=== PATIENT | male | born 1945 | race Caucasian/White ===

== ENCOUNTER → 2018-06-09 | Outpatient (CLI) | payer BC, MEDICARE ==
[~2018-06-09] MED LIST: ASPI-983 PO; ATOR40TA70 PO; LISI-552 PO; METO-351 PO
== END ==
LOC: CARD 12:39
PROVIDERS: ATTEND Internal Medicine Cardiovascular Disease
DX: I08.3 Combined rheumatic disorders of mitral, aortic and tricuspid valves (principal); J44.9 Chronic obstructive pulmonary disease, unspecified; I10 Essential (primary) hypertension; E78.2 Mixed hyperlipidemia
CPT/HCPCS: 93306

== ENCOUNTER → 2018-06-15 | Outpatient (CLI) | payer BC, MEDICARE ==
[~2018-06-15] VITALS: Ht 167.6 cm; Wt 86.2 kg
[~2018-06-15] MED LIST changes: +CATHETER FLUSH 10 ML SYR IV PRN
[2018-06-15 09:22] VITALS: BP 144/83
[2018-06-15 09:28] VITALS: BP 169/67
[2018-06-15 09:31] VITALS: BP 180/105
--- NOTE | 2018-06-15 13:21 | STRESS TEST ---
DATE OF SERVICE: EXERCISE MYOVIEW STRESS TEST REPORT REFERRING PHYSICIAN: . Baseline heart rate is 61, baseline blood pressure 147/86. Baseline EKG, sinus rhythm with no ischemic changes. In summary, the patient was injected with 10.32 mCi of technetium-99 Myoview and the resting images were obtained. Then, the patient was able to exercise for 3 minutes on standard Christofer protocol, was unable to exercise any further. Achieved maximum heart rate of 124, which is 82% of maximum expected heart rate. With peak exercise level, blood pressure was 180/105. EKG was showing [address] depression in II and aVF, V4 and V5, returned to baseline during recovery. The resting and stress images were reviewed and compared in the short axis, horizontal long axis, and vertical long axis views. Review of the images showed diaphragmatic attenuation with reversible ischemia involving the whole inferior wall, inferolateral wall, and inferior apex. SSS is 12. SDS 6. TID value 1.02. On the gated images, the left ventricle appeared to be prominent with end diastolic volume 116 mL, mild diffuse left ventricular hypokinesia with calculated ejection fraction of 40%. CONCLUSION: 1. Poor exercise tolerance, a total of 3 minutes on standard Christofer protocol, total of 4.6 METS achieving 82% of maximum expected heart rate. 2. Nondiagnostic EKG changes with exercise returned to baseline during recovery. 3. Diaphragmatic attenuation with reversible ischemia involving the whole inferior wall, inferolateral wall, inferior apex and anterolateral wall. 4. Slightly prominent left ventricle with mild diffuse left ventricular hypokinesia with calculated ejection fraction of 40%. Job ID: [id number] DocumentID: [id number] Dictated Date: 06/15/2018 12:07:43 Alternative Medicine Practitioner Date: 06/15/2018 13:20:40 Dictated By: LIA BEAUCHAMP MD
== END ==
LOC: CARD 07:13
PROVIDERS: ATTEND Internal Medicine Cardiovascular Disease
DX: I11.9 Hypertensive heart disease without heart failure (principal); E78.2 Mixed hyperlipidemia; I35.0 Nonrheumatic aortic (valve) stenosis
CPT/HCPCS: 78452; 93017

== ENCOUNTER 2018-06-17 11:46 | Day surgery (SDC) | payer BC, MEDICARE ==
[~2018-06-17] VITALS: Ht 167.6 cm; Wt 86.2 kg
[2018-06-17] VITALS (10 sets, daily range): BP systolic 152–184; BP diastolic 75–115
[2018-06-17] MEDS ORDERED: HEParin (CATH LAB) 2,000 ML IV ONE (11:47)
[2018-06-17] MEDS ORDERED: LIDOCAINE 1% INJ 20 ML 20 ML VIAL ONE (11:47)
[2018-06-17] MEDS ORDERED: NS IV 1000 ML 1,000 ML IV SCH ×2 (12:00→13:45)
[2018-06-17] MEDS ORDERED: LISI-552 PO (12:13)
[2018-06-17] MEDS ORDERED: ASPI-983 PO (12:13)
[2018-06-17] MEDS ORDERED: ATOR40TA70 PO (12:13)
[2018-06-17 12:18] LABS: HEMOGLOBIN 15.1 G/DL (13.3-17.7); MEAN PLATELET VOLUME 8.8 FL (7.4-10.4); RED BLOOD COUNT 4.7 10^6/uL (4.35-5.85); RED CELL DISTRIBUTION WIDTH 13.3 % (10.0-14.5); WHITE BLOOD COUNT 5.4 10^3/uL (4.3-11.0)
[2018-06-17 12:37] LABS: ALANINE AMINOTRANSFERASE 16 U/L (0-55); ALBUMIN 4.4 GM/DL (3.2-4.5); ALKALINE PHOSPHATASE 108 U/L (40-136); BILIRUBIN,TOTAL 0.7 MG/DL (0.1-1.0); BUN/CREATININE RATIO 11; CALCIUM 9.7 MG/DL (8.5-10.1); CARBON DIOXIDE 27 MMOL/L (21-32); CHLORIDE 103 MMOL/L (98-107); CHOLESTEROL 191 MG/DL (< 200); CREATININE SERUM 1.12 MG/DL (0.60-1.30); GFR ESTIMATED > 60; GLUCOSE 95 MG/DL (70-105); HDL CHOLESTEROL 41 MG/DL (40-60); POTASSIUM 3.8 MMOL/L (3.6-5.0); SODIUM 138 MMOL/L (135-145); TOTAL PROTEIN 8.2 GM/DL (6.4-8.2); TRIGLYCERIDES 165 MG/DL (<150); VLDL CHOLESTEROL 33 MG/DL (5-40)
[2018-06-17] MEDS ORDERED: FLU QUADRIvalent (5+ YOA) 2018-2019 (AFLURIA) 0.5 ML IM ONE (12:45)
[2018-06-17] MEDS ORDERED: MIDAZOLAM 5 MG/5 ML (VERSED) VIAL ONE (12:54)
[2018-06-17] MEDS ORDERED: fentaNYL INJECTION 100 MCG/2 ML AMP ONE (12:54)
--- NOTE | 2018-06-17 13:04 | Diagnostic Imaging Report ---
INDICATION: Pre-heart catheterization. Patient had abnormal stress test and dyspnea. TIME OF EXAM: 12:08 PM Correlation is made with prior study from 05/31/2010. FINDINGS: The heart size is normal. The lungs are clear. No pleural effusion or pneumothorax is identified. The pulmonary vascularity is normal. IMPRESSION: No acute abnormality detected. Dictated by: Dictated on workstation # [id number]
--- NOTE | 2018-06-17 13:06 | Cardiac Procedure Note-CS/ASA ---
Pre-Procedure Note Pre-Op Procedure Note H&P Reviewed The H&P was reviewed, patient examined and no changes noted. Date H&P Reviewed: Jun 17, 2018 Time H&P Reviewed: 13:05 Conscious Sedation Pre-Proced Time Reviewed: 13:05 ASA Class: 3 Airway Mallampati Classification: ([place] appropriate class) I. II. III, IV Lungs Heart ASA score ASA 1: a normal healthy patient ASA 2: a patient with a mild systemic disease (mid diabetes, controlled hypertension, obesity x ASA 3: a patient with a severe systemic disease that limits activity (angina , COPD, prior Myocardial infarction) ASA 4: a patient with an incapacitating disease that is a constant threat to life (CHF, renal failure) ASA 5: a moribund patient not expected to survive 24 hrs. (ruptured aneurysm) ASA 6: a declared brain patient whose organs are being harvested. For emergent operations, add the letter E after the classification Grade 3 Sedation Plan: Analgesia, Amnesia, Plan communicated to team members, Discussed options with patient/fam, Discussed risks with patient/fam Note The patient is an appropriate candidate to undergo the planned procedure, sedation, and anesthesia. The patient immediately re-assessed prior to indication. LIA BEAUCHAMP MD Jun 17, 2018 13:06
[2018-06-17] MEDS ORDERED: PATIENT MAY USE OWN MEDS, ALL PO SCH (13:45)
[2018-06-17] MEDS ORDERED: meTOprolol 5 MG/5 ML (LOPRESSOR) VIAL ONE (13:48)
--- NOTE | 2018-06-17 13:48 | Discharge Inst-Post CATH ---
Discharge Inst-CATH Post Cardiac Cath D/C Inst Follow Up/Plan Appointment with Dr. Surya Acosta next week Appointment with Dr. De La Garza's office in 2-4 weeks CARDIAC CATH DISCHARGE INSTRUCTIONS *Hold Metformin for 48 hours post heart cath. ACTIVITY * Go Home directly and rest. * Limit activity of the leg (or wrist if it was used) for 7 days including aerobics, swimming, jogging, bicycling, etc. * Restrict stair-climbing for 7 days if possible, if not, climb up with your non -cath leg, then bring together on the same step. * Avoid lifting, pushing, pulling or excessive movement of the affected extremity for 7 days. * Customary sexual activity may be resumed after 2 days-use caution not to use a position that strains or causes pain to the affected extremity. * No driving for 24 hours. * NO SMOKING. * Avoid straining for bowel movements for 7 days. * Gentle walking on level ground is allowed. * Returning to work will depend on the type of procedure and the results. Your doctor will discuss this with you. CALL YOUR DOCTOR FOR ANY OF THE FOLLOWING: *If bleeding from the puncture site occurs- Apply gentle pressure to site with clean cloth and call your doctor or EMS. * If a knot or lump forms under the skin, increases in size, or causes pain. * If bruising appears to be worsening or moving further down your leg instead of disappearing. * Temperature above 101 F. CARE OF YOUR GROIN INCISION; * Bruising or purple discoloration of the skin near the puncture site is common. * You may shower only, no bathtub bathing for 5 days. Be careful to avoid slipping as your leg may feel stiff. * If a closure device was used on your femoral artery, please see the attached guide regarding care of the device and your leg. * REMOVE the dressing from your groin the next day after your procedure in the shower. CARE OF YOUR WRIST INCISION; * Bruising or purple discoloration of the skin near the puncture site is common. * You may shower. * DO NOT submerge wrist. * Remove dressing in 24 hours. LIA DE LA GARZA MD Jun 17, 2018 1:48 pm
--- NOTE | 2018-06-17 13:52 | Cardiac Cath Report ---
Cardiac Cath Report Physician (s)/Sales Demonstrator (s) Physician LIA BEAUCHAMP MD Pre-Procedure Diagnosis Pre-Procedure Diagnosis: Coronary artery disease Post-Procedure Note Procedure Start Date: Jun 17, 2018 Name of Procedure: Left heart catheterization Left ventriculogram Aortic arch angiogram Findings/Procedure Note PROCEDURE NOTE: After explaining the procedure to the patient, all pros and cons were explained , all questions were answered. The patient signed the consent and then he was placed on the cardiac catheterization laboratory. Groin was prepped SL fashion local anesthesia was used. Sheath placed in the right femoral artery. Kerrie right and left catheter were used to access the coronary system. Pigtail was used to access the left ventricular cavity. Left ventriculogram was done Aortic arch angiogram was done to evaluate calcification in the aortic arch and plan for bypass surgery At the end of the procedure the sheath was removed. Closure device was used FINDINGS: Hemodynamics LV 174/23, end-diastolic pressure of 23 Aorta 168/79 mean of 117 ANATOMY: Left Main is calcified with 50-60 percent stenosis at the ostial/proximal portion of the left main Left Anterior Descending has mild to moderate disease at the proximal and midportion nonobstructive disease Left Circumflex has severe proximal disease, second obtuse marginal branch has severe ostial stenosis Right Coronory Artery is totally occluded proximally getting filled by collaterals from the left, dominant artery LV Gram was done showing normal left ventricular size with normal contractility estimated ejection fraction 60 percent Aorta evaluation done with aortic arch angiogram which showed mild calcification and tortuous great neck vessels, no dissection or aneurysm, no obstructive disease in the great vessels CONCLUSION: 1. 50-60 percent ostial left main coronary artery stenosis 2. Severe proximal circumflex artery stenosis, severe second obtuse marginal artery stenosis 3. Total occlusion of the dominant right coronary artery getting filled by collaterals from the left 4. Mild to moderate disease in the proximal and mid LAD 5. Normal left ventricular size and systolic function estimated ejection fraction 60 percent 6. Hypertensive changes in the aortic arch, no dissection or aneurysm, slightly tortuous great vessels of the neck with no obstructive disease DISCUSSION AND RECOMMENDATION: Continue to maximize medical therapy, arrange for evaluation for CABG as an outpatient Anesthesia Type: Conscious Sedation Estimated blood loss (mL): 20 ml Contrast Amount: 80 ml Total Radiation Dose: 580 mGy Post-Procedure Diagnosis Post-operative diagnosis: Shortness of breath Coronary artery disease Hypertension Hyperlipidemia LIA BEAUCHAMP MD Jun 17, 2018 1:52 pm
[2018-06-17] MEDS ORDERED: METO-351 PO (13:53)
== END 2018-06-17 18:15 | disposition home or self-care (01) ==
LOC: CATH 11:46 → SDC 14:07 → CATH 18:15
PROVIDERS: ATTEND Internal Medicine Cardiovascular Disease
DX: R06.02 Shortness of breath (principal); I25.10 Atherosclerotic heart disease of native coronary artery without angina pectoris; I10 Essential (primary) hypertension; E78.2 Mixed hyperlipidemia; R07.89 Other chest pain; J44.9 Chronic obstructive pulmonary disease, unspecified; Z79.899 Other long term (current) drug therapy; I08.3 Combined rheumatic disorders of mitral, aortic and tricuspid valves; R06.83 Snoring; Z11.2 Encounter for screening for other bacterial diseases
CPT/HCPCS: 36221; 36415; 71045; 80053; 80061; 85027; 85610; 85730; 87081; 93458

== ENCOUNTER 2018-09-16 10:34 | Outpatient (RCR) | payer BC, MEDICARE ==
[~2018-09-16 10:34] MED LIST changes: -CATHETER FLUSH 10 ML SYR IV PRN
== END 2018-11-24 | disposition home or self-care (01) ==
LOC: CR 10:34
PROVIDERS: ATTEND Thoracic Surgery (Cardiothoracic Vascular Surgery)
DX: Z48.812 Encounter for surgical aftercare following surgery on the circulatory system (principal); Z95.1 Presence of aortocoronary bypass graft
CPT/HCPCS: 93798

== ENCOUNTER → 2019-01-04 | Outpatient (CLI) | payer BC, MEDICARE ==
--- NOTE | 2019-01-04 12:12 | Diagnostic Imaging Report ---
Left foot. INDICATION: Pain. 3 views were obtained. There are no prior studies available for comparison. FINDINGS: There is no fracture, dislocation or acute bony abnormality evident. The Lisfranc joint is well maintained. There is at least moderate degenerative disease of the DIP and PIP joints and of the first tarsometatarsal joint. There is also small calcaneal spur. The soft tissues are unremarkable. IMPRESSION: There is no evidence for an acute bony abnormality. Dictated by: Dictated on workstation # [id number]
== END ==
LOC: RAD 11:09
PROVIDERS: ATTEND Family Medicine
DX: M79.672 Pain in left foot (principal)
CPT/HCPCS: 73630

== ENCOUNTER → 2019-01-08 | Outpatient (CLI) | payer BC, MEDICARE | LOC: CARD 12:47 | PROVIDERS: ATTEND Internal Medicine Cardiovascular Disease | DX: I25.10 Atherosclerotic heart disease of native coronary artery without angina pectoris (principal); I10 Essential (primary) hypertension; E78.2 Mixed hyperlipidemia; I08.3 Combined rheumatic disorders of mitral, aortic and tricuspid valves | CPT/HCPCS: 93306 ==

== ENCOUNTER → 2019-01-11 | Outpatient (CLI) | payer BC, MEDICARE ==
[~2019-01-11] VITALS: Ht 167.6 cm; Wt 85.3 kg
[~2019-01-11] MED LIST changes: +CATHETER FLUSH 10 ML SYR IV PRN
[2019-01-11 09:50] VITALS: BP 129/71
--- NOTE | 2019-01-12 00:46 | STRESS TEST ---
DATE OF SERVICE: 01/11/2019 REFERRING PHYSICIAN: Dr. Ramin Doe. INDICATION: Valvular heart disease. Baseline heart rate is 80, baseline blood pressure 139/71. Baseline EKG is sinus rhythm with no ischemic changes. In summary, the patient was injected with 10.13 mCi of technetium-99 Myoview and the resting images were obtained. Then, the patient started exercising with a baseline heart rate, blood pressure and EKG mentioned above. The patient was able to exercise for a total of 4 minutes and 22 seconds on standard Christofer protocol. With peak exercise level, EKG was showing nondiagnostic changes. Peak heart rate was 128, which is 85% of maximum expected heart rate. During recovery, heart rate and blood pressure returned to baseline. EKG returned to baseline. The resting and stress images were reviewed and compared in the short axis, horizontal long axis, and vertical long axis views. Review of the images showed diaphragmatic attenuation with typical male pattern. No significant ischemia or infarction was seen. SSS is 3, SDS 3, TID value 0.97. On the gated images, the left ventricle appeared to be normal size with normal contractility. Calculated ejection fraction 47%. CONCLUSION: 1. Fair exercise tolerance, a total of 4 minutes 22 seconds on standard Christofer protocol, total of 4 METS achieving 85% of maximum expected heart rate. 2. Appropriate heart rate and blood pressure response to exercise returned to baseline during recovery. 3. Nondiagnostic EKG changes with exercise returned to baseline during recovery. 4. Diaphragmatic attenuation with typical male pattern with no significant ischemia or infarction on SPECT images. 5. Normal left ventricular size with normal contractility. Calculated ejection fraction 47%. Job ID: [id number] DocumentID: [id number] Dictated Date: 01/11/2019 16:55:58 [employer] Marker Axle Date: 01/12/2019 00:45:22 Dictated By: LIA BEAUCHAMP MD
== END ==
LOC: CARD 07:42
PROVIDERS: ATTEND Internal Medicine Cardiovascular Disease
DX: I08.2 Rheumatic disorders of both aortic and tricuspid valves (principal); I25.10 Atherosclerotic heart disease of native coronary artery without angina pectoris; I10 Essential (primary) hypertension; E78.2 Mixed hyperlipidemia
CPT/HCPCS: 78452; 93017

== ENCOUNTER → 2019-09-15 | Outpatient (CLI) | payer BC, MEDICARE ==
[~2019-09-15] MED LIST changes: -CATHETER FLUSH 10 ML SYR IV PRN
--- NOTE | 2019-09-15 10:53 | Diagnostic Imaging Report ---
EXAMINATION: CT Abdomen Pelvis without contrast. TECHNIQUE: Multiple contiguous axial images were obtained through the abdomen and pelvis without the use of intravenous contrast. All CT scans use one or more of the following dose optimizing techniques: automated exposure control, MA and/or KvP adjustment based on a patient size and exam type, or iterative reconstruction. HISTORY: MICROHEMATURIA COMPARISON: None available. FINDINGS: Limited views of the lower thorax are unremarkable. The liver is normal without focal lesion. There is no biliary ductal dilation. Pancreas is normal. Spleen is normal. Adrenal glands are normal. Multiple small stones are seen in the gallbladder. No evidence for cholecystitis. No renal or ureteral calculi are seen. No suspicious renal lesions. There is no hydronephrosis. Urinary bladder is normal. There are no dilated loops of large or small bowel. No obstruction or inflammation. No free fluid or air. No abdominal or pelvic lymphadenopathy. Aorta is normal in caliber without aneurysm. There are no suspicious osseous lesions. IMPRESSION: 1. No renal or ureteral calculi. 2. Cholelithiasis without cholecystitis. Dictated by: Dictated on workstation # [id number]
--- NOTE | 2019-09-15 10:55 | Diagnostic Imaging Report ---
PROCEDURE: US Scrotum. TECHNIQUE: Multiple real-time grayscale images were obtained over the scrotum in various projections bilaterally. INDICATION: Left testicular lump. FINDINGS: Right testicle measures 3.5 x 1.8 x 2.5 cm and the left testicle measures 3.5 x 1.9 x 2.4 cm. Both testes show homogeneous echotexture. No discrete testicular mass is identified. There is blood flow to both testes. Epididymides are unremarkable bilaterally. There are small hydroceles bilaterally. No varicocele is detected. IMPRESSION: 1. No evidence of testicular mass or vascular compromise. 2. Small bilateral hydroceles. Dictated by: Dictated on workstation # [id number]
== END ==
LOC: RAD 09:53
PROVIDERS: ATTEND Urology
DX: K80.20 Calculus of gallbladder without cholecystitis without obstruction (principal); N43.3 Hydrocele, unspecified; N50.89 Other specified disorders of the male genital organs; R31.29 Other microscopic hematuria
CPT/HCPCS: 74176; 76870

== ENCOUNTER → 2019-11-24 | Outpatient (CLI) | payer BC, MEDICARE | LOC: CARD 12:42 | PROVIDERS: ATTEND Physician Assistant | DX: I25.10 Atherosclerotic heart disease of native coronary artery without angina pectoris (principal); I34.0 Nonrheumatic mitral (valve) insufficiency; E78.2 Mixed hyperlipidemia; I51.7 Cardiomegaly; I35.8 Other nonrheumatic aortic valve disorders | CPT/HCPCS: 93306 ==

== ENCOUNTER 2019-12-08 06:35 | Day surgery (SDC) | payer BC, MEDICARE ==
[~2019-12-08] VITALS: Ht 167 cm; Wt 85.0 kg
[2019-12-08] VITALS (10 sets, daily range): BP systolic 117–170; BP diastolic 65–87
[2019-12-08] MEDS ORDERED: LIDOCAINE 1% INJ 20 ML 20 ML VIAL ONE (06:41)
[2019-12-08] MEDS ORDERED: NS IV 1000 ML 1,000 ML ONE (06:41)
[2019-12-08] MEDS ORDERED: HEParin (CATH LAB) 2,000 ML IV ONE (06:41)
[2019-12-08] MEDS ORDERED: NS IV 1000 ML 1,000 ML IV SCH ×3 (06:43→09:21)
[2019-12-08 07:08] LABS: BILIRUBIN,URINE NEGATIVE (NEGATIVE); CLARITY,URINE CLEAR; COLOR,URINE YELLOW; GLUCOSE, URINE (UA) NEGATIVE (NEGATIVE); KETONES,URINE NEGATIVE (NEGATIVE); LEUKOCYTE ESTERASE ,URINE NEGATIVE (NEGATIVE); NITRITE,URINE NEGATIVE (NEGATIVE); PH,URINE 6.5 (5-9); PROTEIN,URINE 1+ (NEGATIVE)
[2019-12-08 07:10] LABS: HEMOGLOBIN 14.1 G/DL (13.3-17.7); MEAN PLATELET VOLUME 8.6 FL (7.4-10.4); RED CELL DISTRIBUTION WIDTH 13.8 % (10.0-14.5); WHITE BLOOD COUNT 8.7 10^3/uL (4.3-11.0)
[2019-12-08] MEDS ORDERED: ROSU40TA23 PO (07:11)
[2019-12-08 07:19] LABS: BACTERIA,URINE NEGATIVE /HPF; RBC,URINE 25-50 /HPF; SQUAMOUS EPITHELIAL CELL,UR 0-2 /HPF
[2019-12-08 07:27] LABS: INR 0.9 (0.8-1.4); PROTHROMBIN TIME PATIENT 12.9 SEC (12.2-14.7)
[2019-12-08 07:34] LABS: ALBUMIN 4.3 GM/DL (3.2-4.5); BILIRUBIN,TOTAL 0.5 MG/DL (0.1-1.0); CALCIUM 9.7 MG/DL (8.5-10.1); CREATININE SERUM 1.49 MG/DL (0.60-1.30); POTASSIUM 3.7 MMOL/L (3.6-5.0); TOTAL PROTEIN 7.7 GM/DL (6.4-8.2)
--- NOTE | 2019-12-08 07:47 | Diagnostic Imaging Report ---
EXAM: CHEST 1 VIEW, AP/PA ONLY INDICATION: Coronary artery disease. COMPARISON: 06/17/2018. FINDINGS: Normal heart size. Sternotomy. Normal central pulmonary vascularity. No focal pulmonary opacity, pleural effusion or pneumothorax. IMPRESSION: Interval sternotomy. No acute cardiopulmonary findings. Dictated by: Dictated on workstation # [id number]
[2019-12-08] MEDS ORDERED: MIDAZOLAM 5 MG/5 ML (VERSED) VIAL ONE (08:07)
[2019-12-08] MEDS ORDERED: fentaNYL INJECTION 100 MCG/2 ML AMP ONE (08:08)
--- NOTE | 2019-12-08 09:17 | Cardiac Procedure Note-CS/ASA ---
Pre-Procedure Note Pre-Op Procedure Note H&P Reviewed The H&P was reviewed, patient examined and no changes noted. Date H&P Reviewed: Dec 08, 2019 Time H&P Reviewed: 08:30 Conscious Sedation Pre-Proced Time 08:30 ASA Score 3 For ASA 3 and 4: Consider anesthesia and medical clearance. Also, for patients with a history of failed moderate sedation consider anesthesia. Airway Lungs Heart ASA score ASA 1: a normal healthy patient ASA 2: a patient with a mild systemic disease (mid diabetes, controlled hypertension, obesity x ASA 3: a patient with a severe systemic disease that limits activity (angina, COPD, prior Myocardial infarction) ASA 4: a patient with an incapacitating disease that is a constant threat to life (CHF, renal failure) ASA 5: a moribund patient not expected to survive 24 hrs. (ruptured aneurysm) ASA 6: a declared brain- patient whose organs are being harvested. For emergent operations, add the letter E after the classification Mallampati Classification Grade 3 Sedation Plan Analgesia, Amnesia, Plan communicated to team members, Discussed options with patient/fam, Discussed risks with patient/fam The patient is an appropriate candidate to undergo the planned procedure, sedation, and anesthesia. The patient immediately re-assessed prior to indication. LIA BEAUCHAMP MD Dec 08, 2019 09:17
--- NOTE | 2019-12-08 09:21 | Cardiac Cath Report ---
Cardiac Cath Report Physician (s)/Roll Forming Supervisor (s) Physician LIA BEAUCHAMP MD Pre-Procedure Diagnosis Pre-Procedure Diagnosis: Coronary artery disease Post-Procedure Note Procedure Start Date: Dec 08, 2019 Name of Procedure: Left heart catheter Vein graft angiogram JOY angiogram Findings/Procedure Note PROCEDURE NOTE: 74 years old gentleman with history of coronary artery disease, CABG, had significant deterioration liver ventricular function, scheduled for cardiac catheterization possible PTCA After explaining the procedure to the patient, all pros and cons were explained, all questions were answered. The patient signed the consent and then he was placed on the cardiac catheterization laboratory. Groin was prepped SL fashion local anesthesia was used. Sheath placed in the right femoral artery. Kerrie right and left catheter were used to access the coronary system.Vein Graft evaluated. JOY evaluated. Pigtail was used to access the left ventricular cavity. Left ventriculogram was not done, pressure was measured Aortic arch angiogram was not done At the end of the procedure the sheath was removed. Closure device was used FINDINGS: Hemodynamics LV 141/19, end-diastolic pressure of 19 Aorta 141/64 mean of 90 ANATOMY: Left Main has moderate disease Left Anterior Descending has severe disease proximally, JOY to LAD is patent Left Circumflex is occluded proximally, vein graft to OM1/OM 2 is patent with good flow Right Coronory Artery is totally occluded, small artery, not bypassed JOY to LAD is patent with good flow in the LAD Vein Graft /jump graft to OM1 and OM 2 is patent with excellent flow distally LV Gram was not done, pressure was measured CONCLUSION: 1. Occluded right coronary artery that is not bypassed, very small artery not amendable to intervention 2. Occluded proximal circumflex artery with patent vein graft to OM1/OM 2 3. Patent JOY to LAD 4. Moderately elevated left ventricular end-diastolic pressure DISCUSSION AND RECOMMENDATION: Maximizing medical therapy, no intervention is needed Anesthesia Type: Conscious Sedation Estimated blood loss (mL): 25 ml Contrast Amount: 31 ml Total Radiation Dose: 340 mGy Post-Procedure Diagnosis Post-operative diagnosis: Coronary artery disease Congestive heart failure, chronic compensated left ventricular systolic dysfunction, ischemic cardiomyopathy Hypertension Hyperlipidemia LIA BEAUCHAMP MD Dec 08, 2019 09:21
[2019-12-08] MEDS ORDERED: EZET10TA17 PO (09:24)
--- NOTE | 2019-12-08 09:24 | Discharge Inst-Post CATH ---
Discharge Inst-CATH/EP Problems Reviewed?: Yes Post Cardiac Cath/EP D/C Inst Follow Up/Plan Appointment with Dr. De La Garza's office in 4 weeks <b>CARDIAC CATH/EP PROCEDURE DISCHARGE INSTRUCTIONS</b> ACTIVITY * Go Home directly and rest. * Limit activity of the leg (or wrist if it was used) for 7 days including aerobics, swimming, jogging, bicycling, etc. * Restrict stair-climbing for 7 days if possible, if not, climb up with your non-cath leg, then bring together on the same step. * Avoid lifting, pushing, pulling or excessive movement of the affected extremity for 7 days. * Customary sexual activity may be resumed after 2 days-use caution not to use a position that strains or causes pain to the affected extremity. * No driving for 24 hours. * NO SMOKING. * Avoid straining for bowel movements for 7 days. * Gentle walking on level ground is allowed. * Returning to work will depend on the type of procedure and the results. Your doctor will discuss this with you. CALL YOUR DOCTOR FOR ANY OF THE FOLLOWING: *If bleeding from the puncture site occurs- Apply gentle pressure to site with clean cloth and call your doctor or EMS. * If a knot or lump forms under the skin, increases in size, or causes pain. * If bruising appears to be worsening or moving further down your leg instead of disappearing. * Temperature above 101 F. CARE OF YOUR GROIN INCISION; * Bruising or purple discoloration of the skin near the puncture site is common. * You may shower only, no bathtub bathing for 5 days. Be careful to avoid slipping as your leg may feel stiff. * If a closure device was used on your femoral artery, please see the attached guide regarding care of the device and your leg. * Leave dressing on FOR 24 hours. CARE OF YOUR WRIST INCISION; * Bruising or purple discoloration of the skin near the puncture site is common. * You may shower. * DO NOT submerge wrist. * Leave dressing on FOR 24 hours. LIA DE LA GARZA MD Dec 08, 2019 09:24
[2019-12-08] MEDS ORDERED: PATIENT MAY USE OWN MEDS, ALL PO SCH (09:30)
--- OUTSIDE RECORDS SUMMARY | 2019-12-10 02:10 | XMS REPORT | Continuity of Care Document ---
Author Organization Unknown Address Unknown Phone Unavailable Allergies Active Description Code Type Severity Reaction Onset Reported/Identified Relationship to Patient Clinical Status Yes No Known Drug Allergies [id number] Drug Allergy Unknown N/A 06/15/2018 Medications There is no data. Problems Date Dx Coded Attending Type Code Diagnosis Diagnosed By 06/10/2018 LIA BEAUCHAMP MD Ot E78. 2 MIXED HYPERLIPIDEMIA 06/10/2018 LIA BEAUCHAMP MD Ot I08. 3 COMB RHEUMATIC DISORD OF MITRAL, AORTIC 06/10/2018 LIA BEAUCHAMP MD Ot I10 ESSENTIAL (PRIMARY) HYPERTENSION 06/10/2018 LIA BEAUCHAMP MD Ot J44. 9 CHRONIC OBSTRUCTIVE PULMONARY DISEASE, U 06/15/2018 LIA BEAUCHAMP MD Ot E78. 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 9 CHRONIC OBSTRUCTIVE PULMONARY DISEASE, U 06/17/2018 LIA BEAUCHAMP MD Ot E78. 2 MIXED HYPERLIPIDEMIA 06/17/2018 LIA BEAUCHAMP MD Ot I11. 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 0 NONRHEUMATIC AORTIC (VALVE) STENOSIS 06/17/2018 LIA BEAUCHAMP MD Ot E78. 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 10 ATHSCL HEART DISEASE OF [place] CORONARY 06/17/2018 LIA BEAUCHAMP MD Ot J44. 9 CHRONIC OBSTRUCTIVE PULMONARY DISEASE, U 06/17/2018 LIA BEAUCHAMP MD Ot R06. 02 SHORTNESS OF BREATH 06/17/2018 LIA BEAUCHAMP MD Ot R06. 83 SNORING 06/17/2018 LIA BEAUCHAMP MD Ot R07. 89 OTHER CHEST PAIN 06/17/2018 LIA BEAUCHAMP MD Ot Z11. 2 ENCOUNTER FOR SCREENING FOR OTHER BACTER 06/17/2018 LIA BEAUCHAMP MD Ot Z79.899 OTHER IRONWORKER (CURRENT) DRUG THERAPY 06/19/2018 LIA BEAUCHAMP MD Ot E78. 2 MIXED HYPERLIPIDEMIA 06/19/2018 LIA BEAUCHAMP MD Ot I08. 3 COMB RHEUMATIC DISORD OF MITRAL, AORTIC 06/19/2018 LIA BEAUCHAMP MD J Ot I10 ESSENTIAL (PRIMARY) HYPERTENSION 06/19/2018 LIA BEAUCHAMP MD Ot I25. 10 ATHSCL HEART DISEASE OF [place] CORONARY 06/19/2018 LIA BEAUCHAMP MD Ot J44. 9 CHRONIC OBSTRUCTIVE PULMONARY DISEASE, U 06/19/2018 LIA BEAUCHAMP MD Ot R06. 02 SHORTNESS OF BREATH 06/19/2018 LIA BEAUCHAMP MD Ot R06. 83 SNORING 06/19/2018 LIA BEAUCHAMP MD Ot R07. 89 OTHER CHEST PAIN 06/19/2018 LIA BEAUCHAMP MD Ot Z11. 2 ENCOUNTER FOR SCREENING FOR OTHER BACTER 06/19/2018 LIA BEAUCHAMP MD Ot Z79.899 OTHER IRONWORKER (CURRENT) DRUG THERAPY 06/23/2018 LIA BEAUCHAMP MD Ot E78. 2 MIXED HYPERLIPIDEMIA 06/23/2018 LIA BEAUCHAMP MD Ot I08. 3 COMB RHEUMATIC DISORD OF MITRAL, AORTIC 06/23/2018 LIA BEAUCHAMP MD Ot I10 ESSENTIAL (PRIMARY) HYPERTENSION 06/23/2018 LIA BEAUCHAMP MD Ot I25. 10 ATHSCL HEART DISEASE OF [place] CORONARY 06/23/2018 LIA BEAUCHAMP MD Ot J44. 9 CHRONIC OBSTRUCTIVE PULMONARY DISEASE, U 06/23/2018 LIA BEAUCHAMP MD Ot R06. 02 SHORTNESS OF BREATH 06/23/2018 LIA BEAUCHAMP MD Ot R06. 83 SNORING 06/23/2018 LIA BEAUCHAMP MD Ot R07. 89 OTHER CHEST PAIN 06/23/2018 LIA BEAUCHAMP MD Ot Z11. 2 ENCOUNTER FOR SCREENING FOR OTHER BACTER 06/23/2018 LIA BEAUCHAMP MD Ot Z79.899 OTHER IRONWORKER (CURRENT) DRUG THERAPY 06/24/2018 LIA BEAUCHAMP MD Ot E78. 2 MIXED HYPERLIPIDEMIA 06/24/2018 LIA BEAUCHAMP MD Ot I08. 3 COMB RHEUMATIC DISORD OF MITRAL, AORTIC 06/24/2018 LIA BEAUCHAMP MD Ot I10 ESSENTIAL (PRIMARY) HYPERTENSION 06/24/2018 LIA BEAUCHAMP MD Ot J44. 9 CHRONIC OBSTRUCTIVE PULMONARY DISEASE, U 07/01/2018 LIA BEAUCHAMP MD Ot E78. 2 MIXED HYPERLIPIDEMIA 07/01/2018 LIA BEAUCHAMP MD Ot I11. 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 0 NONRHEUMATIC AORTIC (VALVE) STENOSIS 07/10/2018 LIA BEAUCHAMP MD Ot E78. 2 MIXED HYPERLIPIDEMIA 07/10/2018 LIA BEAUCHAMP MD Ot I08. 3 COMB RHEUMATIC DISORD OF MITRAL, AORTIC 07/10/2018 LIA BEAUCHAMP MD Ot I10 ESSENTIAL (PRIMARY) HYPERTENSION 07/10/2018 LIA BEAUCHAMP MD Ot J44. 9 CHRONIC OBSTRUCTIVE PULMONARY DISEASE, U 07/22/2018 LIA BEAUCHAMP MD Ot E78. 2 MIXED HYPERLIPIDEMIA 07/22/2018 LIA BEAUCHAMP MD Ot I11. 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 0 NONRHEUMATIC AORTIC (VALVE) STENOSIS 07/27/2018 LIA BEAUCHAMP MD Ot E78. 2 MIXED HYPERLIPIDEMIA 07/27/2018 LIA BEAUCHAMP MD Ot I08. 3 COMB RHEUMATIC DISORD OF MITRAL, AORTIC 07/27/2018 LIA BEAUCHAMP MD Ot I10 ESSENTIAL (PRIMARY) HYPERTENSION 07/27/2018 LIA BEAUCHAMP MD Ot J44. 9 CHRONIC OBSTRUCTIVE PULMONARY DISEASE, U 09/19/2018 HENRI SÁNCHEZ MD, Ot Z48.812 ENCNTR FOR SURGICAL AFTCR FOLLOWING SURG 09/19/2018 HENRI SÁNCHEZ MD Ot Z95 .1 PRESENCE OF AORTOCORONARY BYPASS GRAFT 10/15/2018 HENRI SÁNCHEZ MD, Ot Z48.812 ENCNTR FOR SURGICAL AFTCR FOLLOWING SURG 10/15/2018 HENRI SÁNCHEZ MD Ot Z95 .1 PRESENCE OF AORTOCORONARY BYPASS GRAFT 11/24/2018 HENRI SÁNCHEZ MD Ot Z48.812 ENCNTR FOR SURGICAL AFTCR FOLLOWING SURG 11/24/2018 HENRI SÁNCHEZ MD Ot Z95 .1 PRESENCE OF AORTOCORONARY BYPASS GRAFT 11/25/2018 HENRI SÁNCHEZ MD Ot Z48.812 ENCNTR FOR SURGICAL AFTCR FOLLOWING SURG 11/25/2018 HENRI SÁNCHEZ MD Ot Z95 .1 PRESENCE OF AORTOCORONARY BYPASS GRAFT 11/28/2018 LIA BEAUCHAMP MD Ot E78. 2 MIXED HYPERLIPIDEMIA 11/28/2018 LIA BEAUCHAMP MD Ot I11. 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 0 NONRHEUMATIC AORTIC (VALVE) STENOSIS 01/05/2019 MARYJANE FARLEY MD C Ot M79.672 PAIN IN LEFT FOOT 01/11/2019 LIA BEAUCHAMP MD Ot E78. 2 MIXED HYPERLIPIDEMIA 01/11/2019 LIA BEAUCHAMP MD Ot I08. 3 COMB RHEUMATIC DISORD OF MITRAL, AORTIC 01/11/2019 LIA BEAUCHAMP MD Ot I10 ESSENTIAL (PRIMARY) HYPERTENSION 01/11/2019 LIA BEAUCHAMP MD Ot I25. 10 ATHSCL HEART DISEASE OF [place] CORONARY 01/12/2019 LIA BEAUCHAMP MD Ot E78. 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 10 ATHSCL HEART DISEASE OF [place] CORONARY 01/20/2019 MARYJANE FARLEY MD C Ot M79.672 PAIN IN LEFT FOOT 01/20/2019 LIA BEAUCHAMP MD Ot E78. 2 MIXED HYPERLIPIDEMIA 01/20/2019 LIA BEAUCHAMP MD Ot I08. 3 COMB RHEUMATIC DISORD OF [place], AORTIC 01/20/2019 LIA BEAUCHAMP MD Ot I10 ESSENTIAL (PRIMARY) HYPERTENSION 01/20/2019 LIA BEAUCHAMP MD Ot I25. 10 ATHSCL HEART DISEASE OF [place] CORONARY 01/28/2019 LIA BEAUCHAMP MD Ot E78. 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 10 ATHSCL HEART DISEASE OF [place] CORONARY 01/28/2019 LIA BEAUCHAMP MD Ot E78. 2 MIXED HYPERLIPIDEMIA 01/28/2019 LIA BEAUCHAMP MD Ot I08. 3 COMB RHEUMATIC DISORD OF MITRAL, AORTIC 01/28/2019 LIA BEAUCHAMP MD Ot I10 ESSENTIAL (PRIMARY) HYPERTENSION 01/28/2019 LIA BEAUCHAMP MD Ot I25. 10 ATHSCL HEART DISEASE OF [place] CORONARY 02/04/2019 MARTINE BUNCH, MARYJANE Kwong Ot M79.672 PAIN IN LEFT FOOT 02/15/2019 LIA BEAUCHAMP MD Ot E78. 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 10 ATHSCL HEART DISEASE OF [place] CORONARY 09/20/2019 CHASITY CABALLERO MD Ot K80.2 0 CALCULUS OF GALLBLADDER W/O CHOLECYSTITI 09/20/2019 CHASITY CABALLERO MD Ot N43.3 HYDROCELE, UNSPECIFIED 09/20/2019 CHASITY CABALLERO MD Ot N50.8 9 OTHER SPECIFIED DISORDERS OF THE MALE GE 09/20/2019 CHASITY CABALLERO MD Ot R31.2 9 OTHER MICROSCOPIC HEMATURIA 09/30/2019 CHASITY CABALLERO MD Ot K80.2 0 CALCULUS OF GALLBLADDER W/O CHOLECYSTITI 09/30/2019 CHASITY CABALLERO MD Ot N43.3 HYDROCELE, UNSPECIFIED 09/30/2019 CHASITY CABALLERO MD Ot N50.8 9 OTHER SPECIFIED DISORDERS OF THE MALE GE 09/30/2019 CHASITY CABALLERO MD Ot R31.2 9 OTHER MICROSCOPIC HEMATURIA 10/15/2019 CHASITY CABALLERO MD, Ot K80.2 0 CALCULUS OF GALLBLADDER W/O CHOLECYSTITI 10/15/2019 CHASITY CABALLERO MD, Ot N43.3 HYDROCELE, UNSPECIFIED 10/15/2019 CHASITY CABALLERO MD Ot N50.8 9 OTHER SPECIFIED DISORDERS OF THE MALE GE 10/15/2019 CHASITY CABALLERO MD Ot R31.2 9 OTHER MICROSCOPIC HEMATURIA 11/24/2019 LIA BEAUCHAMP MD Ot E78. 2 MIXED HYPERLIPIDEMIA 11/24/2019 LIA BEAUCHAMP MD Ot I08. 2 RHEUMATIC DISORDERS OF BOTH [place] AND T 11/24/2019 LIA BEAUCHAMP MD Ot I10 ESSENTIAL (PRIMARY) HYPERTENSION 11/24/2019 LIA BEAUCHAMP MD, Ot I25. 10 ATHSCL HEART DISEASE OF [place] CORONARY 11/24/2019 CHASITY CABALLERO MD, Ot K80.2 0 CALCULUS OF GALLBLADDER W/O CHOLECYSTITI 11/24/2019 CHASITY CABALLERO MD, Ot N43.3 HYDROCELE, UNSPECIFIED 11/24/2019 CHASITY CABALLERO MD Ot N50.8 9 OTHER SPECIFIED DISORDERS OF THE MALE GE 11/24/2019 CHASITY CABALLERO MD Ot R31.2 9 OTHER MICROSCOPIC HEMATURIA 11/26/2019 JEREMIAH ABEBE Ot E78.2 MIXED HYPERLIPIDEMIA 11/26/2019 JEREMIAH ABEBE Ot I25.10 ATHSCL HEART DISEASE OF [place] CORONARY 11/26/2019 JEREMIAH ABEBE Ot I34.0 NONRHEUMATIC MITRAL (VALVE) INSUFFICIENC 11/26/2019 JEREMIAH ABEBE Ot I35.8 OTHER NONRHEUMATIC AORTIC VALVE DISORDER 11/26/2019 JEREMIAH ABEBE Ot I51.7 CARDIOMEGALY Procedures There is no data. Results Test Result Range Automated blood complete blood count (he mogram) panel - 06/17/18 12:00 Blood leukocytes automated count (number/volume) 5.4 10*3/uL 4.3-11.0 Blood erythrocytes automated count (number/volume) 4.70 10*6/uL 4.35-5.85 Venous blood hemoglobin measurement (mass/volume) 15.1 g/dL 13.3-17.7 Blood hematocrit (volume fraction) 43 % 40-54 Automated erythrocyte mean corpuscular volume 92 [ foz_us] 80-99 Automated erythrocyte mean corpuscular h emoglobin (mass per erythrocyte) 32 pg 25-34 Automated erythrocyte mean corpuscular h emoglobin concentration measurement (mass/volume) 35 g/dL 32-36 Automated erythrocyte distribution width ratio 13. 3 % 10.0- 14.5 Automated blood platelet count (count/volume) 209 10*3/uL 130-400 Automated blood platelet mean volume measurement 8.8 [foz_us] 7.4-10.4 PT panel in platelet poor plasma by coag ulation assay - 06/17/18 12:00 Prothrombin time (PT) in platelet poor plasma by coagu lation assay 13.0 s 12.2-14.7 INR in platelet poor plasma or blood by coagulation as say 1.0 0.8-1.4 Activated partial thromboplastin time (a PTT) in platelet poor plasma bycoagulation assay - 06/17/18 12:00 Activated partial thromboplastin time (a PTT) in platelet poor plasma bycoagulation assay 29 s 24-35 Comprehensive metabolic panel - 06/17/18 12:00 Serum or plasma sodium measurement (moles/volume) 138 mmol/L 135-145 Serum or plasma potassium measurement (moles/volume) 3.8 mmol/L 3.6-5.0 Serum or plasma chloride measurement (moles/volume) 103 mmol/L 98-107 Carbon dioxide 27 mmol/L 21-32 Serum or plasma anion gap determination (moles/volume) 8 mmol/L 5-14 Serum or plasma urea nitrogen measurement (mass/volume ) 12 mg/dL 7-18 Serum or plasma creatinine measurement (mass/volume) 1.12 mg/dL 0.60-1.30 Serum or plasma urea nitrogen/creatinine mass ratio 11 NRG Serum or plasma creatinine measurement w ith calculation of estimated glomerular filtration rate > NRG Serum or plasma glucose measurement (mass/volume) 95 mg/dL 70-105 Serum or plasma calcium measurement (mass/volume) 9.7 mg/dL 8.5-10.1 Serum or plasma total bilirubin measurement (mass/volu me) 0.7 mg/dL 0.1-1.0 Serum or plasma alkaline phosphatase rajiv surement (enzymatic activity/volume) 108 U/L 40-136 Serum or plasma aspartate aminotransfera se measurement (enzymatic activity/volume) 19 U/L 5-34 Serum or plasma alanine aminotransferase measurement (enzymatic activity/volume) 16 U/L 0-55 Serum or plasma protein measurement (mass/volume) 8.2 g/dL 6.4-8.2 Serum or plasma albumin measurement (mass/volume) 4.4 g/dL 3.2-4.5 CALCIUM CORRECTED 9.4 mg/dL 8.5-10.1 Lipid 1996 panel - 06/17/18 12:00 Serum or plasma triglyceride measurement (mass/volume) 165 mg/dL <150 Serum or plasma cholesterol measurement (mass/volume) 191 mg/dL < 200 Serum or plasma cholesterol in HDL measurement (mass/v olume) 41 mg/dL 40-60 Cholesterol in LDL [mass/volume] in serum or plasma by direct assay 132 mg/dL 1-129 Serum or plasma cholesterol in VLDL measurement (mass/ volume) 33 mg/dL 5-40 Methicillin resistant Staphylococcus aur eus (MRSA) screening culture - 06/17/18 12:00 Methicillin resistant Staphylococcus aureus (MRSA) scr eening culture NEG NRG Automated blood complete blood count (he mogram) panel - 12/08/19 07:00 Blood leukocytes automated count (number/volume) 8.7 10*3/uL 4.3-11.0 Blood erythrocytes automated count (number/volume) 4.47 10*6/uL 4.35-5.85 Venous blood hemoglobin measurement (mass/volume) 14.1 g/dL 13.3-17.7 Blood hematocrit (volume fraction) 41 % 40-54 Automated erythrocyte mean corpuscular volume 93 [ foz_us] 80-99 Automated erythrocyte mean corpuscular h emoglobin (mass per erythrocyte) 32 pg 25-34 Automated erythrocyte mean corpuscular h emoglobin concentration measurement (mass/volume) 34 g/dL 32-36 Automated erythrocyte distribution width ratio 13. 8 % 10.0- 14.5 Automated blood platelet count (count/volume) 159 10*3/uL 130-400 Automated blood platelet mean volume measurement 8.6 [foz_us] 7.4-10.4 Complete urinalysis with reflex to cultu re - 12/08/19 07:00 Urine color determination YELLOW NRG Urine clarity determination CLEAR NR G Urine pH measurement by test strip 6.5 5-9 Specific gravity of urine by test strip 1.025 1.016-1.022 Urine protein assay by test strip, semi-quantitative 1+ NEGATIVE Urine glucose detection by automated test strip NE GATIVE NEGATIVE Erythrocytes detection in urine sediment by light micr oscopy 2+ NEGATIVE Urine ketones detection by automated test strip NE GATIVE NEGATIVE Urine nitrite detection by test strip NEGATIVE NEGATIVE Urine total bilirubin detection by test strip NEGA TIVE NEGATIVE Urine urobilinogen measurement by automated test strip (mass/volume) 0.2 mg/dL < = 1.0 Urine leukocyte esterase detection by dipstick NEG ATIVE NEGATIVE Automated urine sediment erythrocyte cou nt by microscopy (number/high power field) [HPF] NRG Automated urine sediment leukocyte count by microscopy (number/high power field) NONE NRG Bacteria detection in urine sediment by light microsco py NEGATIVE NRG Squamous epithelial cells detection in u rine sediment by light microscopy 0-2 NRG Crystals detection in urine sediment by light microsco py NONE NRG Casts detection in urine sediment by light microscopy NONE NRG Mucus detection in urine sediment by light microscopy NEGATIVE NRG Complete urinalysis with reflex to culture NO NRG PT panel in platelet poor plasma by coag ulation assay - 12/08/19 07:00 Prothrombin time (PT) in platelet poor plasma by coagu lation assay 12.9 s 12.2-14.7 INR in platelet poor plasma or blood by coagulation as say 0.9 0.8-1.4 Activated partial thromboplastin time (a PTT) in platelet poor plasma bycoagulation assay - 12/08/19 07:00 Activated partial thromboplastin time (a PTT) in platelet poor plasma bycoagulation assay 34 s 24-35 Comprehensive metabolic panel - 12/08/19 07:00 Serum or plasma sodium measurement (moles/volume) 139 mmol/L 135-145 Serum or plasma potassium measurement (moles/volume) 3.7 mmol/L 3.6-5.0 Serum or plasma chloride measurement (moles/volume) 105 mmol/L 98-107 Carbon dioxide 23 mmol/L 21-32 Serum or plasma anion gap determination (moles/volume) 11 mmol/L 5-14 Serum or plasma urea nitrogen measurement (mass/volume ) 19 mg/dL 7-18 Serum or plasma creatinine measurement (mass/volume) 1.49 mg/dL 0.60-1.30 Serum or plasma urea nitrogen/creatinine mass ratio 13 NRG Serum or plasma creatinine measurement w ith calculation of estimated glomerular filtration rate 46 NRG Serum or plasma glucose measurement (mass/volume) 103 mg/dL 70-105 Serum or plasma calcium measurement (mass/volume) 9.7 mg/dL 8.5-10.1 Serum or plasma total bilirubin measurement (mass/volu me) 0.5 mg/dL 0.1-1.0 Serum or plasma alkaline phosphatase rajiv surement (enzymatic activity/volume) 78 U/L 40-136 Serum or plasma aspartate aminotransfera se measurement (enzymatic activity/volume) 15 U/L 5-34 Serum or plasma alanine aminotransferase measurement (enzymatic activity/volume) 15 U/L 0-55 Serum or plasma protein measurement (mass/volume) 7.7 g/dL 6.4-8.2 Serum or plasma albumin measurement (mass/volume) 4.3 g/dL 3.2-4.5 CALCIUM CORRECTED 9.5 mg/dL 8.5-10.1 Lipid 1996 panel - 12/08/19 07:00 Serum or plasma triglyceride measurement (mass/volume) 115 mg/dL <150 Serum or plasma cholesterol measurement (mass/volume) 157 mg/dL < 200 Serum or plasma cholesterol in HDL measurement (mass/v olume) 42 mg/dL 40-60 Cholesterol in LDL [mass/volume] in serum or plasma by direct assay 108 mg/dL 1-129 Serum or plasma cholesterol in VLDL measurement (mass/ volume) 23 mg/dL 5-40 Methicillin resistant Staphylococcus aur eus (MRSA) screening culture - 12/08/19 07:00 Methicillin resistant Staphylococcus aureus (MRSA) scr eening culture NEG NRG Encounters ACCT No. Visit Date/Time Discharge Status Pt. Type Provider Facility Loc./Unit Complaint [id number] 12/08/2019 06:35:00 020 13:15:00 DIS Outpatient QUYNH BUNCH, ILA Rae [facility] CATH CAD,CHF,SOB,HTN,HLP [id number] 11/24/2019 12:42:00 23:59:59 CLS Outpatient SHANICE GUERRIER, DAPHNE Camacho [facility] CARD ANTERIOR CH EST WALL PAIN,CAD,MR,HYPERLIPIDEMIA [id number] 09/15/2019 09:53:00 23:59:59 CLS Outpatient CHASITY CABALLERO MD [facility] RAD TESTICULAR LESION [id number] 01/11/2019 07:42:00 23:59:59 CLS Outpatient LIA BEAUCHAMP MD [facility] CARD AR [id number] 01/08/2019 12:47:00 23:59:59 CLS Outpatient LIA BEAUCHAMP MD [facility] CARD AR [id number] 01/04/2019 11:09:00 23:59:59 CLS Outpatient MARYJANE FARLEY MD [facility] RAD LEFT FOOT PAIN [id number] 11/25/2018 10:00:00 23:59:59 CLS Preadmit HENRI SÁNCHEZ MD [facility] CR STATUS POST ACB [id number] 09/16/2018 10:34:00 00:01:00 DIS Outpatient HENRI SÁNCHEZ MD [facility] CR STATUS POST ACB [id number] 06/24/2018 10:58:00 23:59:59 CLS Preadmit HENRI SÁNCHEZ MD [facility] RT SOB [id number] 06/17/2018 11:46:00 18:15:00 DIS Outpatient LIA BEAUCHAMP MD [facility] CATH ABN STRESS TEST [id number] 06/15/2018 07:13:00 018 23:59:59 CLS Outpatient LIA BEAUCHAMP MD [facility] CARD AORTIC VALUE STENOSIS,C OPD,HTN [id number] 06/09/2018 12:39:00 23:59:59 CLS Outpatient LIA BEAUCHAMP MD [facility] CARD AORTIC VALVE STENOSIS,C OPD,HTN
== END 2019-12-08 13:15 | disposition home or self-care (01) ==
LOC: CATH 06:35 → SDC 09:35 → CATH 13:15
PROVIDERS: ATTEND Internal Medicine Cardiovascular Disease
DX: I25.10 Atherosclerotic heart disease of native coronary artery without angina pectoris (principal); I25.5 Ischemic cardiomyopathy; I11.0 Hypertensive heart disease with heart failure; I50.22 Chronic systolic (congestive) heart failure; I08.3 Combined rheumatic disorders of mitral, aortic and tricuspid valves; I65.29 Occlusion and stenosis of unspecified carotid artery; E78.2 Mixed hyperlipidemia; J44.9 Chronic obstructive pulmonary disease, unspecified; Z79.899 Other long term (current) drug therapy; Z79.82 Long term (current) use of aspirin; Z95.1 Presence of aortocoronary bypass graft; Z83.3 Family history of diabetes mellitus; Z80.9 Family history of malignant neoplasm, unspecified
CPT/HCPCS: 36415; 71045; 80053; 80061; 81000; 85027; 85610; 85730; 87081; 93005; 93459

== ENCOUNTER → 2020-09-26 | Outpatient (CLI) | payer BC, MEDICARE ==
[~2020-09-26] MED LIST changes: +ASPI-1238 PO; -ASPI-983 PO; +EZET10TA17 PO; +ROSU40TA23 PO
== END ==
LOC: CARD 11:19
PROVIDERS: ATTEND Physician Assistant
DX: I25.10 Atherosclerotic heart disease of native coronary artery without angina pectoris (principal); I08.3 Combined rheumatic disorders of mitral, aortic and tricuspid valves
CPT/HCPCS: 93306

== ENCOUNTER 2021-04-02 14:18 | Emergency (ER) | payer BC, MEDICARE ==
[~2021-04-02] VITALS: Ht 167.7 cm; Wt 86.2 kg
[~2021-04-02 14:18] MED LIST changes: -LISI-552 PO; +LISI20TA26 PO
--- NOTE | 2021-04-02 14:29 | ED Fall/Injury ---
General Chief Complaint: Trauma-Non Activation Stated Complaint: FALL Source: patient Exam Limitations: no limitations (NARINDER COPE APRN) History of Present Illness Date Seen by Provider: Apr 02, 2021 Time Seen by Provider: 14:29 Initial Comments To ER by EMS from home with reports that he fell off of a ladder while he was about 4 ft up. Does not believe that he hit his head and he has no pain. He initially did not want to come to the hospital. Family however insisted he get checked out. He did vomit on arrival here and he is diaphoretic. Has been working outside in the heat and humidity today. Occurred: this evening Severity: moderate Context: unknown Associated Symptoms (Fall): Denies Symptoms (NARINDER COPE APRN) Allergies and Home Medications Allergies Coded Allergies: No Known Drug Allergies (Unverified , 06/15/18) Home Medications Aspirin 81 Mg Tablet.dr, 81 MG PO DAILY, (Reported) Ezetimibe 10 Mg Tablet, 10 MG PO DAILY Prescribed by: LIA BEAUCHAMP on 12/08/19 0924 Lisinopril 20 Mg Tablet, 20 MG PO DAILY, (Reported) Metoprolol Succinate 25 Mg Tab.er.24h, 25 MG PO DAILY Prescribed by: LIA BEAUCHAMP on 06/17/18 1353 Rosuvastatin Calcium 40 Mg Tablet, 40 MG PO HS, (Reported) Patient Home Medication List Home Medication List Reviewed: Yes (NARINDER COPE APRN) Review of Systems Review of Systems Constitutional: see HPI Eyes: No Symptoms Reported Ears, Nose, Mouth, Throat: no symptoms reported Respiratory: no symptoms reported Cardiovascular: no symptoms reported Genitourinary: no symptoms reported Musculoskeletal: no symptoms reported Skin: no symptoms reported Psychiatric/Neurological: No Symptoms Reported (NARINDER COPE APRN) Past Hxedoke-Rsbkmq-Rcccur Hx Immunizations Up To Date Tetanus Booster (TDap): More than 5yrs (NARINDER COPE APRN) Past Medical History CABG Respiratory: No Cardiac: Yes Coronary Artery Disease Neurological: No Genitourinary: No Gastrointestinal: No Cancer: No (NARINDER COPE APRN) Physical Exam Vital Signs Vital Signs - First Documented 04/02/21 04/02/21 14:24 16:21 Pulse 35 Resp 16 B/P (MAP) 150/72 (98) Pulse Ox 98 O2 Delivery Room Air (REESE LUND MD) Vital Signs Capillary Refill : (NARINDER COPE APRN) Height, Weight, BMI Height: 5'6.00" Weight: 188lbs. 0.0oz. 85.069881gs; 30.47 BMI Method: General Appearance: WD/WN, no apparent distress, other (Alert and oriented no evidence of head or neck injury. No abrasions or lacerations. He is alert, he is very diaphoretic and did vomit. Suspect a heat related illness rather than head injury.) HEENT: PERRL/EOMI, normal ENT inspection Neck: non-tender, full range of motion Respiratory: no respiratory distress, no accessory muscle use Gastrointestinal: normal bowel sounds, non tender, soft Extremities: normal range of motion, non-tender Neurologic/Psychiatric: alert, normal mood/affect, oriented x 3 Skin: normal color, warm/dry (NARINDER COPE APRN) Cortez Coma Score Best Eye Response: (4) Open Spontaneously Best Verbal Response: (5) Oriented Best Motor Response: (6) Obeys Commands Huma Total: 15 (NARINDER COPE APRN) Progress/Results/Core Measures Results/Orders Lab Results Laboratory Tests Test 04/02/21 14:38 04/02/21 15:29 Range/Units White Blood Count 7.4 4.3-11.0 10^3/uL Red Blood Count 4.27 L 4.30-5.52 10^6/uL Hemoglobin 14.0 13.3-17.7 g/dL Hematocrit 41 40-54 % Mean Corpuscular Volume 95 80-99 fL Mean Corpuscular Hemoglobin 33 25-34 pg Mean Corpuscular Hemoglobin Concent 34 32-36 g/dL Red Cell Distribution Width 13.2 10.0-14.5 % Platelet Count 145 130-400 10^3/uL Mean Platelet Volume 8.9 L 9.0-12.2 fL Immature Granulocyte % (Auto) 1 % Neutrophils (%) (Auto) 59 42-75 % Lymphocytes (%) (Auto) 27 12-44 % Monocytes (%) (Auto) 9 0-12 % Eosinophils (%) (Auto) 3 0-10 % Basophils (%) (Auto) 1 0-10 % Neutrophils # (Auto) 4.4 1.8-7.8 10^3/uL Lymphocytes # (Auto) 2.0 1.0-4.0 10^3/uL Monocytes # (Auto) 0.7 0.0-1.0 10^3/uL Eosinophils # (Auto) 0.3 0.0-0.3 10^3/uL Basophils # (Auto) 0.1 0.0-0.1 10^3/uL Immature Granulocyte # (Auto) 0.1 0.0-0.1 10^3/uL Sodium Level 139 135-145 MMOL/L Potassium Level 4.1 3.6-5.0 MMOL/L Chloride Level 106 98-107 MMOL/L Carbon Dioxide Level 20 L 21-32 MMOL/L Anion Gap 13 5-14 MMOL/L Blood Urea Nitrogen 26 H 7-18 MG/DL Creatinine 1.82 H 0.60-1.30 MG/DL Estimat Glomerular Filtration Rate 37 BUN/Creatinine Ratio 14 Glucose Level 141 H 70-105 MG/DL Calcium Level 9.6 8.5-10.1 MG/DL Corrected Calcium 9.2 8.5-10.1 MG/DL Total Bilirubin 0.6 0.1-1.0 MG/DL Aspartate Amino Transf (AST/SGOT) 35 H 5-34 U/L Alanine Aminotransferase (ALT/SGPT) 41 0-55 U/L Alkaline Phosphatase 61 40-136 U/L Total Creatine Kinase 53 30-200 U/L Troponin I < 0.028 <0.028 NG/ML Total Protein 7.9 6.4-8.2 GM/DL Albumin 4.5 3.2-4.5 GM/DL Urine Color YELLOW Urine Clarity CLEAR Urine pH 5.5 5-9 Urine Specific [place] 1.025 H 1.016-1.022 Urine Protein TRACE H NEGATIVE Urine Glucose (UA) NEGATIVE NEGATIVE Urine Ketones NEGATIVE NEGATIVE Urine Nitrite NEGATIVE NEGATIVE Urine Bilirubin NEGATIVE NEGATIVE Urine Urobilinogen 0.2 < = 1.0 MG/DL Urine Leukocyte Esterase TRACE H NEGATIVE Urine RBC (Auto) NEGATIVE NEGATIVE Urine RBC NONE /HPF Urine WBC 2-5 /HPF Urine Squamous Epithelial Cells 0-2 /HPF Urine Crystals NONE /LPF Urine Bacteria NEGATIVE /HPF Urine Casts PRESENT /LPF Urine Hyaline Casts 2-5 H /LPF Urine Granular Casts 0-2 H /LPF Urine Mucus NEGATIVE /LPF Urine Culture Indicated NO (REESE LUND MD) Medications Given in ED Current Medications Medications Dose Ordered Sig/Jose Route Start Time Stop Time Status Last Admin Dose Admin Ondansetron HCl 8 mg ONCE ONCE IVP 04/02/21 14:30 04/02/21 14:31 DC 04/02/21 14:42 8 MG (REESE LUND MD) Vital Signs/I&O 04/02/21 04/02/21 14:24 16:21 Pulse 35 67 Resp 16 17 B/P (MAP) 150/72 (98) 154/72 Pulse Ox 98 O2 Delivery Room Air Room Air (REESE LUND MD) Diagnostic Imaging Diagonstic Imaging: CT Comments NAME: AUSTIN CUADRA [facility] REC#: [id number] PT STATUS: REG ER : 1945 PHYSICIAN: NARINDER COPE APRN ADMIT DATE: 04/02/21/ER Signed Date of Exam:04/02/21 CT HEAD/CERVICAL SPINE WO PROCEDURE: CT head and CT cervical spine without contrast. TECHNIQUE: Multiple contiguous axial images were obtained through the brain and cervical spine without the use of intravenous contrast. Sagittal and coronal reformations through the cervical spine were then performed. Auto Exposure Controls were utilized during the CT exam to meet ALARA standards for radiation dose reduction. INDICATION: Fall. COMPARISON: No prior studies are available for comparison. CT HEAD: Ventricles and sulci are somewhat prominent consistent with cerebral atrophy. There is no sulcal effacement or midline shift. No acute intra-axial or extra-axial hemorrhage is detected. Cisterns are patent. There is mucosal thickening of the left maxillary sinus. IMPRESSION: Cerebral atrophy. No acute intracranial process is detected. CT CERVICAL SPINE: Alignment is normal. There is multilevel degenerative disc disease, greatest at C5-C6 and C6-C7 levels with significant disc space narrowing and marginal spurring. No fractures are seen. The prevertebral tissues are within normal limits. Odontoid is intact. Multilevel facet arthropathy is noted. IMPRESSION: Cervical spondylosis. No acute bony abnormality is detected. Dictated by: Dictated on workstation # [id number] Dict: 04/02/21 1508 Trans: 04/02/21 1519 [id number] Interpreted by: HENRI MORALES MD Electronically signed by: HENRI MORALES MD 04/02/21 1519 (NARINDER COPE APRN) Departure Communication (Admissions) 1530-remains alert oriented states he just feels tired. (NARINDER COPE APRN) Impression Primary Impression: Heat exhaustion Disposition: 01 HOME, SELF-CARE Condition: Stable Departure-Patient Inst. Decision time for Depature: 14:58 (NARINDER COPE APRN) Referrals: MARYJANE FARLEY MD (PCP/Family) Primary Care Physician Patient Instructions: Heat Illness ED Add. Discharge Instructions: 1531-Your CT scan does not show any evidence of injury though it does not show us concussions. Concussions are based on symptoms of a head injury followed by nausea vomiting headache dizziness and sometimes altered consciousness. This is a possibility. However I feel it is more likely that you have sustained a heat related illness which has caused your nausea weakness and fatigue. All discharge instructions reviewed with patient and/or family. Voiced understanding. ATTENDING PHYSICIAN NOTE: I was physically present as attending physician in the emergency department during the care of this patient, but I was not directly involved in the decision making or delivery of care for this patient. (REESE LUND MD) NARINDER COPE APRN Apr 02, 2021 14:29 REESE LUND MD Apr 02, 2021 20:37
[2021-04-02] MEDS ORDERED: ONDANSETRON 4 MG/2 ML (SDV) Z0FRAN IVP ONE (14:30)
[2021-04-02] MEDS ORDERED: NS IV 1000 ML 1,000 ML IV SCH (14:30)
[2021-04-02 14:48] LABS: BASOPHILS # (AUTO) 0.1 10^3/uL (0.0-0.1); BASOPHILS % (AUTO) 1 % (0-10); EOSINOPHILS # (AUTO) 0.3 10^3/uL (0.0-0.3); EOSINOPHILS % (AUTO) 3 % (0-10); HEMATOCRIT 41 % (40-54); LYMPHOCYTES % (AUTO) 27 % (12-44); MEAN CORPUSCULAR HEMOGLOBIN 33 pg (25-34); MEAN CORPUSCULAR HGB CONC 34 g/dL (32-36); MEAN CORPUSCULAR VOLUME 95 fL (80-99); MEAN PLATELET VOLUME 8.9 fL (9.0-12.2); MONOCYTES # (AUTO) 0.7 10^3/uL (0.0-1.0); MONOCYTES % (AUTO) 9 % (0-12); NEUTROPHILS # (AUTO) 4.4 10^3/uL (1.8-7.8); NEUTROPHILS % (AUTO) 59 % (42-75); PLATELET COUNT 145 10^3/uL (130-400); WHITE BLOOD COUNT 7.4 10^3/uL (4.3-11.0)
[2021-04-02 14:58] LABS: ALBUMIN 4.5 GM/DL (3.2-4.5)
[2021-04-02 14:59] LABS: POTASSIUM 4.1 MMOL/L (3.6-5.0)
[2021-04-02 15:00] LABS: CALCIUM 9.6 MG/DL (8.5-10.1)
[2021-04-02 15:01] LABS: TOTAL PROTEIN 7.9 GM/DL (6.4-8.2)
[2021-04-02 15:03] LABS: BILIRUBIN,TOTAL 0.6 MG/DL (0.1-1.0)
[2021-04-02 15:05] LABS: CREATININE SERUM 1.82 MG/DL (0.60-1.30)
--- NOTE | 2021-04-02 15:21 | Diagnostic Imaging Report ---
PROCEDURE: CT head and CT cervical spine without contrast. TECHNIQUE: Multiple contiguous axial images were obtained through the brain and cervical spine without the use of intravenous contrast. Sagittal and coronal reformations through the cervical spine were then performed. Auto Exposure Controls were utilized during the CT exam to meet ALARA standards for radiation dose reduction. INDICATION: Fall. COMPARISON: No prior studies are available for comparison. CT HEAD: Ventricles and sulci are somewhat prominent consistent with cerebral atrophy. There is no sulcal effacement or midline shift. No acute intra-axial or extra-axial hemorrhage is detected. Cisterns are patent. There is mucosal thickening of the left maxillary sinus. IMPRESSION: Cerebral atrophy. No acute intracranial process is detected. CT CERVICAL SPINE: Alignment is normal. There is multilevel degenerative disc disease, greatest at C5-C6 and C6-C7 levels with significant disc space narrowing and marginal spurring. No fractures are seen. The prevertebral tissues are within normal limits. Odontoid is intact. Multilevel facet arthropathy is noted. IMPRESSION: Cervical spondylosis. No acute bony abnormality is detected. Dictated by: Dictated on workstation # [id number]
[2021-04-02 15:39] LABS: BILIRUBIN,URINE NEGATIVE (NEGATIVE); CLARITY,URINE CLEAR; COLOR,URINE YELLOW; GLUCOSE, URINE (UA) NEGATIVE (NEGATIVE); KETONES,URINE NEGATIVE (NEGATIVE); LEUKOCYTE ESTERASE ,URINE TRACE (NEGATIVE); NITRITE,URINE NEGATIVE (NEGATIVE); PH,URINE 5.5 (5-9); PROTEIN,URINE TRACE (NEGATIVE)
[2021-04-02 15:48] LABS: BACTERIA,URINE NEGATIVE /HPF; GRANULAR CASTS,URINE 0-2 /LPF; SQUAMOUS EPITHELIAL CELL,UR 0-2 /HPF
[2021-04-02 16:21] VITALS: BP 154/72
== END 2021-04-02 16:21 | disposition home or self-care (01) ==
LOC: EDUNIT# 14:18 → ER 14:22
DX: T67.5XXA Heat exhaustion, unspecified, initial encounter (principal); I25.10 Atherosclerotic heart disease of native coronary artery without angina pectoris; Z79.82 Long term (current) use of aspirin; Z79.899 Other long term (current) drug therapy
CPT/HCPCS: 36415; 70450; 72125; 80053; 81000; 82550; 84484; 85025

== ENCOUNTER → 2021-09-14 | Outpatient (CLI) | payer BC, MEDICARE | LOC: CARD 11:00 | PROVIDERS: ATTEND Internal Medicine Cardiovascular Disease | DX: I11.9 Hypertensive heart disease without heart failure (principal); I08.0 Rheumatic disorders of both mitral and aortic valves | CPT/HCPCS: 93306 ==

== ENCOUNTER → 2022-03-05 | Outpatient (CLI) | payer BC, MEDICARE ==
--- NOTE | 2022-03-05 14:39 | Diagnostic Imaging Report ---
Indication: Fall with right arm pain. Time of Exam: 2:13 PM 2 views of the forearm are obtained. Alignment at the elbow and wrist appears normal. The radius and ulna appear intact. No fractures are seen. 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 IMPRESSION: No acute abnormality detected. Dictated by: Dictated on workstation # [id number]
--- NOTE | 2022-03-05 14:40 | Diagnostic Imaging Report ---
Indication: Fall with right wrist pain and swelling. Time of Exam: 2:11 PM 3 views of the right wrist were obtained. Alignment is normal. Distal radius and ulna are intact. 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 Triscaphe and 1st CMC joint degenerative changes are noted. IMPRESSION: Chronic changes. No acute bony abnormality is detected. Dictated by: Dictated on workstation # [id number]
== END ==
LOC: RAD 13:57
PROVIDERS: ATTEND Family Medicine
DX: M25.531 Pain in right wrist (principal); M25.431 Effusion, right wrist; W19.XXXA Unspecified fall, initial encounter
CPT/HCPCS: 73090; 73110

== ENCOUNTER → 2022-10-23 | Outpatient (CLI) | payer BC, MEDICARE ==
--- NOTE | 2022-10-23 16:18 | Diagnostic Imaging Report ---
INDICATION: Left-sided neck pain. COMPARISON: None. FINDINGS: Frontal, lateral, and open-mouth radiographic views of the cervical spine were obtained. Cervical spine is seen down to the inferior endplate of C7. C7-T1 level is obscured by overlying osseous and soft tissue structures. Visualized vertebral body heights are maintained. There is no evidence of acute fracture. Static alignment is maintained. There is no significant dilcia- or retro-listhesis. There is no evidence of jumped facets. Open-mouth view shows normal C1-C2 alignment. Moderate multilevel degenerative changes are noted and consist of intervertebral disc height loss with multilevel endplate osteophyte formations and facet arthropathy. IMPRESSION: 1. No acute fracture or dislocation of the cervical spine. 2. Moderate multilevel degenerative changes. Dictated by: Dictated on workstation # [id number]
== END ==
LOC: RAD 13:23
PROVIDERS: ATTEND Family Medicine
DX: M47.812 Spondylosis without myelopathy or radiculopathy, cervical region (principal); R20.2 Paresthesia of skin
CPT/HCPCS: 72040

== ENCOUNTER → 2023-03-19 | Outpatient (CLI) | payer BC, MEDICARE | LOC: CARD 08:00 | PROVIDERS: ATTEND Internal Medicine Cardiovascular Disease | DX: I08.0 Rheumatic disorders of both mitral and aortic valves (principal); I10 Essential (primary) hypertension | CPT/HCPCS: 93306 ==

== ENCOUNTER → 2023-05-19 | Outpatient (CLI) | payer BC, MEDICARE ==
[~2023-05-19] VITALS: Ht 167 cm; Wt 91.0 kg
[~2023-05-19] MED LIST changes: +CATHETER FLUSH 10 ML SYR IVP PRN; +REGADENOSON 0.4 MG/5 ML SYR IV ONE
[2023-05-19 09:08] VITALS: BP 148/74
[2023-05-19 09:18] VITALS: BP 188/81
--- NOTE | 2023-05-19 12:28 | Cardiology Stress Test Report ---
Stress Test Report Date of Procedure/Referring: Date of Procedure: May 19, 2023 PCP Ramin Farley MD Admitting Physician Admitting Physician: Attending Physician: Chloe Rivera Baseline Heart Rate: 71 Baseline Blood Pressure: Blood Pressure Systolic: 188 Blood Pressure Diastolic: 81 Baseline Vitals Vital Signs Date Time Temp Pulse Resp B/P (MAP) Pulse Ox O2 Delivery O2 Flow Rate FiO2 05/19/23 09:08 71 148/74 (98) 96 Baseline EKG: Baseline EKG: NSR Summary After explaining the procedure to the patient, he signed a consent and then brought to the stress nuclear laboratory. Patient received 0.4 mg Lexiscan for stress test, ECG, heart rate and blood pressure were monitored continuously. Resting and stress dose of radio tracer were injected, imaging was acquired and reviewed in short axis, horizontal long axis and vertical long axis views. TID: 1.14 SSS: 1 SDS: 1 EF: 56 Patient was unable to exercise, test converted to Lexiscan Myoview stress test Patient tolerated Lexiscan well No significant ischemia or infarction noted on SPECT images Normal left ventricular size, ejection fraction 56% Copy Copies To 1: RAMIN FARLEY MD, BASHAR J MD May 19, 2023 12:28
== END ==
LOC: CARD 07:45
PROVIDERS: ATTEND Physician Assistant
DX: I10 Essential (primary) hypertension (principal)
CPT/HCPCS: 78452; 93017; A9502